=== PATIENT | male | born 1980 | race Hispanic/Latino ===

== ENCOUNTER 2024-02-21 03:04 | Emergency (ER) | payer SELFPAY ==
[~2024-02-21] VITALS: Ht 172.7 cm; Wt 63.5 kg
--- NOTE | 2024-02-21 03:29 | NUR ---
DIMITRIOS COUNTS INCLUDE 234 BEDS AT THE [facility] DEPT AT [facility]
[2024-02-21 04:54] LABS: BASOPHILS # (AUTO) 0.05 K/uL (0.00-0.20); BASOPHILS % (AUTO) 0.4 % (0.0-5.0); EOSINOPHILS # (AUTO) 0.01 K/uL (0.00-0.70); EOSINOPHILS % (AUTO) 0.1 % (0.0-8.0); HEMATOCRIT 46.2 % (42-54); IMMATURE GRANULOCYTE ABSOLUTE 0.04 K/uL (0-1); LYMPHOCYTES # (AUTO) 2.1 K/uL (1.0-4.8); LYMPHOCYTES % (AUTO) 17.4 % (21.0-51.0); MEAN CORPUSCULAR HEMOGLOBIN 30.4 pg (27.0-33.0); MEAN CORPUSCULAR HGB CONC 34.2 g/dL (32.0-36.0); MONOCYTES # (AUTO) 0.5 K/uL (0.1-1.0); MONOCYTES % (AUTO) 4.5 % (3.0-13.0); NEUTROPHILS # (AUTO) 9.3 K/uL (1.8-7.7); NEUTROPHILS % (AUTO) 77.3 % (40.0-77.0); PLATELET COUNT (AUTO) 259 K/uL (130-400); RED BLOOD CELL COUNT(AUTO) 5.19 MIL/uL (4.50-6.20); RED CELL DISTRIBUTION WIDTH 12.6 % (11.0-15.5)
[2024-02-21 05:02] LABS: CARBON DIOXIDE 26 mmol/L (21-32); CHLORIDE 101 mmol/L (101-111); GLOMERULAR FILTR. RATE CALC 96 mL/min (>90); GLUCOSE,RANDOM 94 mg/dL (70-105); POTASSIUM 3.9 mmol/L (3.5-5.1); SODIUM SERUM 136 mmol/L (136-145); UREA NITROGEN, BLOOD 12 mg/dL (7-18)
[2024-02-21] MEDS: LACTATED RINGERS 1000ML 1,000 ML IV ONE (05:05)
[2024-02-21 05:11] LABS: ALANINE AMINOTRANSFERASE 36 U/L (12-78); ALBUMIN 4.1 g/dL (3.5-5.0); ALCOHOL, BLOOD < 3 mg/dL (0-10); ASPARTATE AMINOTRANSFERASE 47 U/L (10-37); TOTAL PROTEIN, SERUM 7.9 g/dL (6.0-8.3)
[2024-02-21 05:46] LABS: HIV 1&2 ANTIBODY Non-Reactive (Negative)
[2024-02-21 05:47] LABS: HIV-1 p24 Antigen Non-Reactive (Negative)
[2024-02-21 06:01] LABS: APPEARANCE,URINE CLEAR (CLEAR); BILIRUBIN,URINE NEGATIVE (NEGATIVE); COLOR,URINE LIGHT-YELLOW (YELLOW); GLUCOSE, URINE (UA) NEGATIVE (NEGATIVE); KETONES,URINE 10 mg/dL (NEGATIVE); LEUKOCYTE ESTERASE ,URINE NEGATIVE Leu/uL (NEGATIVE); NITRATE,URINE NEGATIVE (NEGATIVE); OCCULT BLOOD,URINE MODERATE (NEGATIVE); PH,URINE 6.5 (5.0-8.0); PROTEIN,URINE 10 mg/dL (NEGATIVE); UROBILINOGEN,URINE 0.2 mg/dL (0.2-1.0)
[2024-02-21 06:05] LABS: ADD UA MICROSCOPIC YES
[2024-02-21 06:06] LABS: BACTERIA,URINE RARE /HPF (None Seen)
[2024-02-21] MEDS: morPHINE 4 MG SYG IVP ONE (06:11)
[2024-02-21 06:14] LABS: AMPHET/METH SCREEN,URINE POSITIVE (NEGATIVE); BARBITURATE SCREEN, URINE NEGATIVE (NEGATIVE); BENZODIAZEPINES SCREEN,URINE NEGATIVE (NEGATIVE); CANNABINOID SCREEN,URINE NEGATIVE (NEGATIVE); COCAINE SCREEN,URINE POSITIVE (NEGATIVE); OPIATE SCREEN,URINE NEGATIVE (NEGATIVE); PHENCYCLIDINE SCREEN,URINE NEGATIVE (NEGATIVE)
--- NOTE | 2024-02-21 06:35 | NUR ---
TRANSFER CALL PLACED TO Davian AT [facility] [place] TO MAKE HER AWARE OF PENDING TRANSFER FOR HER SERVICES.
--- NOTE | 2024-02-21 06:40 | NUR ---
TRANSFER CALL PLACED TO [facility] TO [place]ITIATE [place] [facility] [place]
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
[2024-02-21 07:10] VITALS: BP 168/97; PULSE 95; RESP 20; TEMP 98.8; O2SAT 98
--- NOTE | 2024-02-21 07:15 | NUR ---
TRANSFER PT. ACCEPTED BY Parveen MON MD @ 0715 FOR TRANSFER TO [facility] [place] ER. REPORT: [phone]
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
--- NOTE | 2024-02-21 08:17 | NUR ---
[facility] CALLED FOR TRANSPORT
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
--- NOTE | 2024-02-21 09:37 | NUR ---
REPORT GIVEN TO ESHA GRIFFIN AT [facility] [place] FOR PT TRANSFER TO [facility] [place].
== END 2024-02-21 09:44 | disposition short-term general hospital (02) ==
LOC: EDH 03:04 → EEVIPCON 03:04 → EDH 09:44
DX: T74.21XA Adult sexual abuse, confirmed, initial encounter (principal); F32.A Depression, unspecified; F41.9 Anxiety disorder, unspecified; Z79.899 Other long term (current) drug therapy; Y08.89XA Assault by other specified means, initial encounter; Y93.89 Activity, other specified; Y92.89 Other specified places as the place of occurrence of the external cause; Y99.8 Other external cause status
CPT/HCPCS: 99285; 70450; 96374; 96361; 71045; 80053; 80305; 85025; 86701; 87390; 36415; 70486; 81001; J7120; J2270